=== PATIENT | female | born 1970 | race Caucasian/White ===

== ENCOUNTER 2021-08-03 11:24 | Emergency (ER) | payer OTHER, SELFPAY ==
[2021-08-03 11:27] VITALS: BP 139/97; PULSE 75; RESP 18; TEMP 36.5; O2SAT 100
--- NOTE | 2021-08-03 12:51 | ED.WOUNDLAC ---
HPI - Wound/Laceration General Chief Complaint: Wound/Laceration <Ivet Richardson PA-C - Last Filed: 08/03/21 12:57> Stated Complaint: lip injury <JAMES Moralez Last Filed: 08/03/21 12:57> Time Seen by Provider: 08/03/21 12:26 <Ivet Richardson PA-C - Last Filed: 08/03/21 12:57> Source: patient <Ivet Richardson PA-C - Last Filed: 08/03/21 12:57> Mode of arrival: ambulatory <Ivet Richardson PA-C - Last Filed: 08/03/21 12:57> Limitations: no limitations <JAMES Moralez Last Filed: 08/03/21 12:57> History of Present Illness HPI narrative: This is a 51-year-old female that presents to the emergency department for an injury to her upper lip. Reports she was tearing out furniture from a vacant house. She accidentally hit her lip on a board. Reports she had some bleeding to the area and was prompted to be seen by her work. Denies vision changes, vomiting, numbness, or weakness. <Ivet Richardson PA-C - Last Filed: 08/03/21 12:57> Review of Systems Review of Systems: CONSTITUTIONAL: Denies fever EYES: Denies visual changes GASTROINTESTINAL: Denies vomiting NEUROLOGIC: Denies numbness, or weakness. <Ivet Richardson PA-C - Last Filed: 08/03/21 12:57> All systems reviewed & are unremarkable except as noted in HPI and below <Ivet Richardson PA-C - Last Filed: 08/03/21 12:57> [facility] Past Medical History Medical History: Medical History (Updated 08/03/21 @ 12:57 by Ivet Richardson PA-C) No active medical problems <Ivet Richardson PA-C - Last Filed: 08/03/21 12:57> Social History Social History: Social History (Updated 08/03/21 @ 12:53 by Ivet Richardson PA-C) Substance use: never <JAMES Moralez Last Filed: 08/03/21 12:57> Exam Narrative: GENERAL: Well-appearing, well-nourished, and in no acute distress. HEAD: Normocephalic, atraumatic. EYES: PERRLA and EOMI. ENT: Nares clear, no rhinorrhea or epistaxis. Mucous membranes moist. Oropharynx without tonsillar hypertrophy exudate or other lesions. Bilateral TMs pearly powers non-bulging. Upper, inner lip with small contusion NECK: Supple. No adenopathy or masses. CHEST: Clear to auscultation. No respiratory distress. No wheezes rales or rhonchi HEART: Regular rate and rhythm. No murmur heard. Normal peripheral pulses. EXTREMITIES: Normal range of motion. No edema. Strength equal in bilateral upper extremities (5/5) SKIN: Warm, dry, no rash. NEURO: No focal deficits. Alert and oriented x3. Cranial nerves II through XII grossly intact. Normal gait PSYCH: Normal mood and affect <Ivet Richardson PA-C - Last Filed: 08/03/21 12:57> Course [facility] [employer]/PA Physician Supervision For this patient encounter, I reviewed the [facility] or PA documentation, treatment plan, and medical decision making <Ascencion Nunez MD - Last Filed: 08/03/21 13:52> Vital Signs Vital signs: Vital Signs Temperature 97.7 F 08/03/21 11:27 Pulse Rate 75 08/03/21 11:27 Respiratory Rate 18 08/03/21 11:27 Blood Pressure 139/97 H 08/03/21 11:27 Pulse Oximetry 100 08/03/21 11:27 Temperature 97.7 F 08/03/21 11:27 Pulse Rate 75 08/03/21 11:27 Respiratory Rate 18 08/03/21 11:27 Blood Pressure 139/97 H 08/03/21 11:27 Pulse Oximetry 100 08/03/21 11:27 <Ivet Richardson PA-C - Last Filed: 08/03/21 12:57> Vital Signs Temperature 97.7 F 08/03/21 11:27 Pulse Rate 75 08/03/21 11:27 Respiratory Rate 18 08/03/21 11:27 Blood Pressure 139/97 H 08/03/21 11:27 Pulse Oximetry 100 08/03/21 11:27 Temperature 97.7 F 08/03/21 11:27 Pulse Rate 75 08/03/21 11:27 Respiratory Rate 18 08/03/21 11:27 Blood Pressure 139/97 H 08/03/21 11:27 Pulse Oximetry 100 08/03/21 11:27 <Ascencion Nunez MD - Last Filed: 08/03/21 13:52> MDM - Wound/Laceration MDM Narrative Medical decision making narrative: Patient presents to the emergency department for an injury t
== END 2021-08-03 13:05 | disposition home or self-care (01) ==
PROVIDERS: Emergency Provider Emergency Medicine
DX: S00.531A Contusion of lip, initial encounter (principal); W22.8XXA Striking against or struck by other objects, initial encounter
CPT/HCPCS: 99282